=== PATIENT | female | born 1970 | race African-American/Black ===

== ENCOUNTER 2016-09-14 20:23 | Emergency (ER) | payer BC ==
[2016-09-14 19:23] LABS: BASOPHILS 0.2 %; BASOPHILS ABSOLUTE 0.01 10/3/uL (0.0-0.16); EOSINOPHILS 2.3 %; EOSINOPHILS ABSOLUTE 0.14 10/3/uL (0.0-0.53); ER CBC TAT 0 Hrs 05 Mins; HEMATOCRIT 38.3 % (36.0-48.0); HEMOGLOBIN 12.9 g/dL (12.0-16.0); LYMPHOCYTES 60.7 %; LYMPHOCYTES ABSOLUTE 3.77 10/3/uL (0.67-4.30); MANUAL DIFF NO %; MEAN CORPUS HGB CONC 33.7 g/dL (32.0-36.0); MEAN CORPUSCULAR HEMOGLOB 28.4 pg (26.0-34.0); MEAN CORPUSCULAR VOLUME 84.4 fL (80-100); MEAN PLATELET VOLUME 9.5 fL (9.2-13.0); MONOCYTES 6.9 %; MONOCYTES ABSOLUTE 0.43 10/3/uL (0.21-1.20); NEUTROPHILS 29.9 %; NEUTROPHILS ABSOLUTE 1.86 10/3/uL (2.02-8.40); PLATELET COUNT 283 10/3/uL (150-400); RBC DISTRIBUTION WIDTH 13.8 % (12.0-16.0); RED CELL COUNT 4.54 10/6/uL (4.0-5.6); WHITE BLOOD CELLS 6.2 10/3/uL (4.5-10.5)
[2016-09-14 19:26] LABS: ASCORBIC ACID (UR NOT ORDER) NEG (NEG); BILIRUBIN, URINE NEGATIVE (NEG); ER URINALYSIS TAT 0 Hrs 13 Mins; KETONE, URINE NEGATIVE (NEG); LEUKOCYTE ESTERASE(NOT OR NEG (NEG); NITRITE (URINE) NEG (NEG); WBC (NOT ORDERED) (RFLEX) 1 (0-5)
[2016-09-14 19:40] LABS: A/G RATIO 0.9 (0.7-1.9); ALBUMIN 3.5 G/DL (3.5-5.0); BUN (BLOOD UREA NITROGEN) 15 MG/DL (6-23); CALCIUM, SERUM 8.3 MG/DL (8.5-10.4); CHLORIDE, SERUM 108 MMOL/L (96-112); CO2 (CARBON DIOXIDE) 27 MMOL/L (24-34); CREATININE 0.87 MG/DL (0.55-1.02); GFR AFRICAN AMERICAN 94 ML/MIN (>=60); GFR NON AFRICAN AMERICAN 81 ML/MIN (>=60); GLOBULIN 3.8 G/DL (2.5-4.1); GLUCOSE, SERUM 88 MG/DL (60-99); POTASSIUM, SERUM 3.9 MMOL/L (3.5-5.3); SGOT(AST) 14 U/L (5-40); SGPT(ALT) 29 U/L (5-65); SODIUM, SERUM 143 MMOL/L (135-148); TOTAL BILIRUBIN 0.2 MG/DL (0-1.2); TOTAL PROTEIN 7.3 G/DL (6.0-8.5)
[2016-09-14 19:41] LABS: ALKALINE PHOSPHATASE 72 U/L (45-117)
[~2016-09-14 20:23] MED LIST: CHOLESTEROL RX PO; D100 PO; KEPPRA1000 MG PO; LYRICA75 PO; NEXIUM20 M1 PO; PRAVAC PO; PROVHFA INH; SUCR PO; TOPAMAX25 PO; VIMPAT50 MG PO; ZANTAC150 MG PO; ZANTAC300 MG PO
[2017-02-01] MEDS ORDERED: BENTYL20 PO (10:41)
[2017-02-01] MEDS ORDERED: SUCR PO (10:42)
[2017-02-01] MEDS ORDERED: PEP20 PO (10:42)
[2017-02-01] MEDS ORDERED: IMDUR30 PO (10:42)
[2017-02-01] MEDS ORDERED: PLAVIX PO (10:43)
[2017-02-01] MEDS ORDERED: KEPPRA750 MG PO (10:43)
[2017-02-01] MEDS ORDERED: TOPAMAX25 PO (10:43)
[2017-02-01] MEDS ORDERED: HALF81 PO (10:44)
[2017-02-01] MEDS ORDERED: NORCO1 TA1 PO (10:44)
[2017-02-01] MEDS ORDERED: PROTONIX PO (10:44)
[2017-02-01] MEDS ORDERED: PERCOCET 10/3251 TAB PO (10:45)
[2017-02-01] MEDS ORDERED: LIPITOR40 PO (10:46)
[2017-02-01] MEDS ORDERED: LOP25 PO (10:46)
[2017-02-01] MEDS ORDERED: NITROSTAT0.4 MG SL (10:46)
[2017-02-01] MEDS ORDERED: REFRESH OPH SO0.3 ML OPH (10:47)
[2017-02-01] MEDS ORDERED: PROVHFA INH (10:47)
[2017-02-01] MEDS ORDERED: ACET500CAP PO (10:47)
[2017-02-01] MEDS ORDERED: VITAMIN D1000 UNI1 PO (10:53)
== END 2016-09-14 21:33 | disposition home or self-care (01) ==
LOC: ER 20:23
PROVIDERS: Emergency Medicine
DX: N76.0 Acute vaginitis (principal); I10 Essential (primary) hypertension; I25.2 Old myocardial infarction; Z98.61 Coronary angioplasty status; Z87.891 Personal history of nicotine dependence; Z88.2 Allergy status to sulfonamides; Z88.6 Allergy status to analgesic agent; Z91.048 Other nonmedicinal substance allergy status; Z88.1 Allergy status to other antibiotic agents; Z79.899 Other long term (current) drug therapy
CPT/HCPCS: 80053; 81001; 83690; 84703; 85025; 96372; 99283; A9270-GY; J0696

== ENCOUNTER 2016-09-28 05:30 | Emergency (ER) | payer BC ==
[2016-09-28 01:10] LABS: BASOPHILS 0.4 %; BASOPHILS ABSOLUTE 0.02 10/3/uL (0.0-0.16); EOSINOPHILS 3.1 %; EOSINOPHILS ABSOLUTE 0.17 10/3/uL (0.0-0.53); HEMATOCRIT 38.6 % (36.0-48.0); HEMOGLOBIN 13.3 g/dL (12.0-16.0); LYMPHOCYTES 54.8 %; LYMPHOCYTES ABSOLUTE 2.96 10/3/uL (0.67-4.30); MANUAL DIFF NO %; MEAN CORPUS HGB CONC 34.5 g/dL (32.0-36.0); MEAN CORPUSCULAR HEMOGLOB 28.6 pg (26.0-34.0); MEAN PLATELET VOLUME 9.6 fL (9.2-13.0); MONOCYTES 6.3 %; MONOCYTES ABSOLUTE 0.34 10/3/uL (0.21-1.20); NEUTROPHILS 35.4 %; NEUTROPHILS ABSOLUTE 1.91 10/3/uL (2.02-8.40); PLATELET COUNT 245 10/3/uL (150-400); RBC DISTRIBUTION WIDTH 13.6 % (12.0-16.0); RED CELL COUNT 4.65 10/6/uL (4.0-5.6); WHITE BLOOD CELLS 5.4 10/3/uL (4.5-10.5)
[2016-09-28 01:20] LABS: PROTIME (NOT ORD) 13.4 SEC (12.0-14.5)
[2016-09-28 01:28] LABS: BUN (BLOOD UREA NITROGEN) 14 MG/DL (6-23); CALCIUM, SERUM 8.3 MG/DL (8.5-10.4); CHEST PAIN PROFILE TAT 0 Hrs 22 Mins; CHLORIDE, SERUM 108 MMOL/L (96-112); CO2 (CARBON DIOXIDE) 26 MMOL/L (24-34); CREATININE 0.93 MG/DL (0.55-1.02); GFR AFRICAN AMERICAN 87 ML/MIN (>=60); GFR NON AFRICAN AMERICAN 75 ML/MIN (>=60); POTASSIUM, SERUM 3.9 MMOL/L (3.5-5.3); SODIUM, SERUM 143 MMOL/L (135-148); TROPONIN I <0.02 NG/ML (<0.05)
[2016-09-28 01:29] LABS: GLUCOSE, SERUM 107 MG/DL (60-99)
[2016-09-28 05:56] LABS: INFLUENZA A SCREEN NEGATIVE (NEGATIVE); INFLUENZA B SCREEN NEGATIVE (NEGATIVE)
[2016-09-28 06:28] LABS: ASCORBIC ACID (UR NOT ORDER) NEG (NEG); BILIRUBIN, URINE NEGATIVE (NEG); KETONE, URINE NEGATIVE (NEG); LEUKOCYTE ESTERASE(NOT OR NEG (NEG); NITRITE (URINE) NEG (NEG); WBC (NOT ORDERED) (RFLEX) 2 (0-5)
[2017-02-01] MEDS ORDERED: BENTYL20 PO (10:41)
[2017-02-01] MEDS ORDERED: PEP20 PO (10:42)
[2017-02-01] MEDS ORDERED: SUCR PO (10:42)
[2017-02-01] MEDS ORDERED: IMDUR30 PO (10:42)
[2017-02-01] MEDS ORDERED: KEPPRA750 MG PO (10:43)
[2017-02-01] MEDS ORDERED: PLAVIX PO (10:43)
[2017-02-01] MEDS ORDERED: TOPAMAX25 PO (10:43)
[2017-02-01] MEDS ORDERED: NORCO1 TA1 PO (10:44)
[2017-02-01] MEDS ORDERED: PROTONIX PO (10:44)
[2017-02-01] MEDS ORDERED: HALF81 PO (10:44)
[2017-02-01] MEDS ORDERED: PERCOCET 10/3251 TAB PO (10:45)
[2017-02-01] MEDS ORDERED: LOP25 PO (10:46)
[2017-02-01] MEDS ORDERED: NITROSTAT0.4 MG SL (10:46)
[2017-02-01] MEDS ORDERED: LIPITOR40 PO (10:46)
[2017-02-01] MEDS ORDERED: ACET500CAP PO (10:47)
[2017-02-01] MEDS ORDERED: PROVHFA INH (10:47)
[2017-02-01] MEDS ORDERED: REFRESH OPH SO0.3 ML OPH (10:47)
[2017-02-01] MEDS ORDERED: VITAMIN D1000 UNI1 PO (10:53)
== END 2016-09-28 07:15 | disposition home or self-care (01) ==
LOC: ER 05:30
PROVIDERS: Nurse Practitioner; Specialist
DX: R07.9 Chest pain, unspecified (principal); R11.2 Nausea with vomiting, unspecified; J45.909 Unspecified asthma, uncomplicated; I25.2 Old myocardial infarction; I10 Essential (primary) hypertension; K21.9 Gastro-esophageal reflux disease without esophagitis; E78.5 Hyperlipidemia, unspecified; Z95.5 Presence of coronary angioplasty implant and graft; Z87.891 Personal history of nicotine dependence; Z90.710 Acquired absence of both cervix and uterus; Z90.89 Acquired absence of other organs; Z88.1 Allergy status to other antibiotic agents; Z88.2 Allergy status to sulfonamides; Z88.8 Allergy status to other drugs, medicaments and biological substances; Z91.09 Other allergy status, other than to drugs and biological substances; Z79.899 Other long term (current) drug therapy
CPT/HCPCS: 71010; 80048; 81001; 83690; 83735; 84443; 84484; 85025; 85610; 85730; 87804; 93005; 96374; 99285; A9270-GY

== ENCOUNTER 2016-11-24 15:17 | Observation (INO) | payer BC ==
--- NOTE | ~2016-11-24 | HP ---
History And Physical [place] [id number] [facility] [place]. [address] NAME: BRITTANY AVALOS : 74 STATUS : ADM Tara PAT#: [id number] AGE: 46 ADM/REG DATE : 11/24/16 MR#: [id number] REPORT SERV DATE: 11/25/16 DICTATED BY: ANA LEIJA DATE: 11/25/16 REPORT STATUS : Draft TRANSCRIBED BY: SIDRA DATE: 11/25/16 DATE OF ADMISSION: 11/24/2016 PRIMARY ENGINE INSPECTOR: Dr. Guy Sears. CHIEF COMPLAINT: Shortness of breath and chest pain as well as seizure. HISTORY OF PRESENT ILLNESS: This is a very pleasant 46-year-old female with history of coronary artery disease status post RI and stent to the RCA and left circumflex in February 2016 along with a balloon angioplasty to the RCA on 11/06/2016 of this year. She describes since that 11/06/2016 hospitalization at a hospital in [place], where she received angioplasty, she still continues to experience chest pain to the midsternum typically with activity. The episodes last from 5 to 10 minutes, they are intermittent. She also describes dyspnea on exertion. She is experiencing both shortness of breath and chest pain yesterday while she was getting ready to go to [employer]idism. Then, when she was leaving the yazidism, she mentioned to the family members that she should come to the hospital, and then she fainted. The patient has a history of seizure disorder, and at that time, had a grand mal seizure witnessed by her family members, and she was brought here to our emergency department by her sister around 1230 hours. The patient received her home medications of Keppra, Lyrica, and Topamax, which she had not taken that morning. Typically, she is very compliant with these medications, and has not had a seizure for many years. The patient also received aspirin and nitroglycerin as well as IV morphine and Zofran for her chest pain, and she is currently chest pain free. The patient states recent evaluation with ultrasound of her bilateral lower extremities by her primary care physician, which was negative. The patient denies swelling or calf tenderness. Denies fever, cough, or chills. Denies PND or orthopnea. She does mention more fatigue over the last week. Review of records from Dr. Sears's office visit on 11/18/2016 indicates that the patient was also complaining of shortness of breath at that visit, and she was changed from Brilinta to Plavix for anti-platelet regimen. She has been compliant with her Plavix therapy. PAST MEDICAL HISTORY: 1. Coronary artery disease status post RI in February 2016 with stent to the proximal left circumflex as well as RCA. Then hospitalized at [facility] in [place] with a mqw-IL-miuxdolpr RI. Troponin leak of 0.1, and PCI to the ostial RCA on 11/06/2016. 2. Echocardiogram on 11/06/2016 indicates EF of 60%. 3. Obesity. 4. Hyperlipidemia. 5. Seizure disorder, grand mal. 6. Remote history of asthma. 7. Prior tobacco use, quit in 2015. 8. Diverticulitis. 9. GERD. History And Physical [address] [place]. [address] NAME: BRITTANY AVALOS : 74 STATUS : ADM Tara PAT#: [id number] AGE: 46 ADM/REG DATE : 11/24/16 MR#: [id number] REPORT SERV DATE: 11/25/16 DICTATED BY: ANA LEIJA DATE: 11/25/16 REPORT STATUS : Draft TRANSCRIBED BY: SIDRA DATE: 11/25/16 PAST SURGICAL HISTORY: 1. Hysterectomy in 2011. 2. Tubal ligation. 3. Left inguinal hernia repair at age 23. 4. Adenoidectomy and tonsillectomy at age 24. HOME MEDICATIONS: Aspirin 81 daily, Plavix 75 daily, Keppra 500 b.i.d., Lopressor 25 b.i.d., Lyrica 100 mg b.i.d., and Topamax 25 b.i.d. ALLERGIES: ALLERGY TO SULFA CAUSES A RASH. CECLOR WITH UNKNOWN REACTION. CIPRO WITH RASH. ADHESIVE TAPE AND BANDAGES, RASH. TORADOL WITH RASH. REGLAN, "GOES CRAZY." EKG PADS CAUSE SWELLING, RASH, AND ITCHING WITH EXTENDED USE. SOCIAL HISTORY: The patient is single, her son currently lives with her. Quit tobacco in 2016 after many years. Denies alcohol or illicit drug use. FAMILY HISTORY: Father with history of a DVT at age 58. Also had open heart surgery at age 65. He is still living. No premature cardiovascular related among her first-degree relatives. REVIEW OF SYSTEMS: The patient also mentions that she had a sleep study as an outpatient approximately three months ago which suggested that she has some sleep apnea when lying on her back. Followup sleep study was recommended. All other review of systems was negative except as indicated above. PHYSICAL EXAMINATION: VITAL SIGNS: Blood pressure 104/72, heart rate 63, temperature 98.4, and pulse oximetry 99% on room air. BMI of 38.2. GENERAL: Well developed, well nourished, in no acute distress HEENT: Anicteric. Normal EOM. Head normocephalic. PERRLA, no xanthelasma. NECK: Supple. No JVD. Carotids normal without bruits. LUNGS: Clear to auscultation bilaterally anterior and posterior. Respirations even and unlabored. CARDIOVASCULAR: S1, S2. Regular rate and rhythm. No murmurs, rubs, or gallops appreciated. PMI nondisplaced. There is some tenderness to palpation over the mid sternum. ABDOMEN: Normal bowel sounds. Soft and nontender to palpation. No masses or organomegaly. EXTREMITIES: No peripheral edema. DP/PT and radial pulses palpable bilaterally. No clubbing or cyanosis. SKIN: Warm and dry. Normal turgor. No pallor or cyanosis. MUSCULOSKELETAL: Moving all extremities x4. Normal muscle strength. NEURO/PSYCH: Alert and oriented with appropriate affect. LABORATORY DATA: White blood count 4.2, hemoglobin 13.2, and hematocrit 38.5. Sodium 142, potassium 4.0, BUN 13, and creatinine 0.8. Troponin less than 0.02 x2. Chest x-ray showed no acute cardiopulmonary abnormalities. EKGs interpreted by myself indicate normal sinus History And Physical [address] [address] NAME: BRITTANY AVALOS : 74 STATUS : ADM Tara PAT#: [id number] AGE: 46 ADM/REG DATE : 11/24/16 MR#: [id number] REPORT SERV DATE: 11/25/16 DICTATED BY: ANA LEIJA DATE: 11/25/16 REPORT STATUS : Draft TRANSCRIBED BY: SIDRA DATE: 11/25/16 rhythm on three separate EKGs with no ischemic changes. ASSESSMENT/PLAN: 1. Midsternal chest pain and dyspnea on exertion in the patient with history of coronary artery disease and recent angioplasty to the RCA. EKG and troponins do not indicate any acute coronary ischemia at this time. The patient is currently on aspirin, beta- tamica, and statin therapy. [facility] Agu[facility] this morning, and we will proceed with a nuclear stress test this morning to identify any areas of ischemia in this patient who has had stents in both the left circumflex and RCA. If no indication of ischemia on stress testing, we will plan to discharge her home with the addition of Ranexa 500 mg b.i.d. to her medical therapy. I also provided the patient with a prescription for nitroglycerin p.r.n. chest pain. I have instructed her on the use of this and come to the emergency department for any chest pain, unrelieved after 3 doses 5 minutes apart. I have also recommend that she pursue outpatient sleep study as mentioned before. We will arrange follow up with her jamb cutter within the next month after testing done here. If any indication of ischemia on stress testing, we will need to consider repeat cardiac catheterization. 2. Coronary artery disease with history of stents to the RCA and left circumflex in 2016, and then reported balloon angioplasty to the RCA on 11/06/2016. I have reviewed the records from [facility]. The patient is currently compliant with her aspirin and Plavix. We will continue these medicines as well as her beta-tamica and statin therapy. 3. Seizure disorder with grand mal seizure occurring yesterday after one skipped dose. We will continue her current seizure medications, and the patient plans to follow up with her neurologist in the outpatient setting in early November. I have further emphasized this. 4. Mixed hyperlipidemia. On statin therapy. We will continue. DBT/MODL Ana Leija NP / [id number] CC: Hilaria Cisneros, MSN, MANAGER UTILIZATION-[employer] Johnny Moore M.D.
[2016-11-24 13:23] LABS: BASOPHILS 0.2 %; BASOPHILS ABSOLUTE 0.01 10/3/uL (0.0-0.16); EOSINOPHILS 2.1 %; EOSINOPHILS ABSOLUTE 0.09 10/3/uL (0.0-0.53); ER CBC TAT 0 Hrs 05 Mins; HEMATOCRIT 38.5 % (36.0-48.0); HEMOGLOBIN 13.2 g/dL (12.0-16.0); IMMATURE GRANULOCYTES 0.2 %; IMMATURE GRANULOCYTES ABSOLUTE 0.01 10/3/uL (0.0-0.11); LYMPHOCYTES 55.7 %; LYMPHOCYTES ABSOLUTE 2.36 10/3/uL (0.67-4.30); MEAN CORPUS HGB CONC 34.3 g/dL (32.0-36.0); MEAN CORPUSCULAR HEMOGLOB 28.6 pg (26.0-34.0); MEAN CORPUSCULAR VOLUME 83.3 fL (80-100); MEAN PLATELET VOLUME 9.6 fL (9.2-13.0); MONOCYTES 6.6 %; MONOCYTES ABSOLUTE 0.28 10/3/uL (0.21-1.20); NEUTROPHILS 35.2 %; NEUTROPHILS ABSOLUTE 1.49 10/3/uL (2.02-8.40); PLATELET COUNT 241 10/3/uL (150-400); RBC DISTRIBUTION WIDTH 13.2 % (12.0-16.0); RED CELL COUNT 4.62 10/6/uL (4.0-5.6); WHITE BLOOD CELLS 4.2 10/3/uL (4.5-10.5)
[2016-11-24 13:27] LABS: MANUAL DIFF NO %
[2016-11-24 13:37] LABS: BUN (BLOOD UREA NITROGEN) 13 MG/DL (6-23); CALCIUM, SERUM 8.9 MG/DL (8.5-10.4); CHEST PAIN PROFILE TAT 0 Hrs 19 Mins; CHLORIDE, SERUM 109 MMOL/L (96-112); CO2 (CARBON DIOXIDE) 29 MMOL/L (24-34); CREATININE 0.84 MG/DL (0.55-1.02); GFR AFRICAN AMERICAN 98 ML/MIN (>=60); GFR NON AFRICAN AMERICAN 85 ML/MIN (>=60); GLUCOSE, SERUM 93 MG/DL (60-99); SODIUM, SERUM 142 MMOL/L (135-148); TROPONIN I <0.02 NG/ML (<0.05)
[2016-11-24 13:56] LABS: INTERNATIONAL NORMAL RATI 1.1 UNITS (-); PROTIME (NOT ORD) 13.7 SEC (12.0-14.5)
[2016-11-24] MEDS ORDERED: PLAVIX PO (15:20)
[2016-11-24] MEDS ORDERED: KEPPRA500 PO (15:20)
[2016-11-24] MEDS ORDERED: TOPAMAX25 PO (15:20)
[2016-11-24] MEDS ORDERED: LOP25 PO (15:21)
[2016-11-24] MEDS ORDERED: HALF81 PO (15:21)
[2016-11-24] MEDS ORDERED: LYRICA100 MG PO (15:21)
[2016-11-26] MEDS ORDERED: RAN500 PO (14:57)
[2016-11-26] MEDS ORDERED: NITROQUICK0.3 MG SL (15:09)
[2017-02-01] MEDS ORDERED: BENTYL20 PO (10:41)
[2017-02-01] MEDS ORDERED: IMDUR30 PO (10:42)
[2017-02-01] MEDS ORDERED: PEP20 PO (10:42)
[2017-02-01] MEDS ORDERED: SUCR PO (10:42)
[2017-02-01] MEDS ORDERED: KEPPRA750 MG PO (10:43)
[2017-02-01] MEDS ORDERED: TOPAMAX25 PO (10:43)
[2017-02-01] MEDS ORDERED: PLAVIX PO (10:43)
[2017-02-01] MEDS ORDERED: PROTONIX PO (10:44)
[2017-02-01] MEDS ORDERED: HALF81 PO (10:44)
[2017-02-01] MEDS ORDERED: NORCO1 TA1 PO (10:44)
[2017-02-01] MEDS ORDERED: PERCOCET 10/3251 TAB PO (10:45)
[2017-02-01] MEDS ORDERED: LIPITOR40 PO (10:46)
[2017-02-01] MEDS ORDERED: NITROSTAT0.4 MG SL (10:46)
[2017-02-01] MEDS ORDERED: LOP25 PO (10:46)
[2017-02-01] MEDS ORDERED: PROVHFA INH (10:47)
[2017-02-01] MEDS ORDERED: REFRESH OPH SO0.3 ML OPH (10:47)
[2017-02-01] MEDS ORDERED: ACET500CAP PO (10:47)
[2017-02-01] MEDS ORDERED: VITAMIN D1000 UNI1 PO (10:53)
== END 2016-11-26 15:29 | disposition home or self-care (01) ==
LOC: ER 15:17 → CDU1 15:39 → CDU2 15:51
PROVIDERS: Hospitalist
DX: R07.89 Other chest pain (principal); R06.00 Dyspnea, unspecified; I25.10 Atherosclerotic heart disease of native coronary artery without angina pectoris; G40.409 Other generalized epilepsy and epileptic syndromes, not intractable, without status epilepticus; E78.2 Mixed hyperlipidemia; G43.909 Migraine, unspecified, not intractable, without status migrainosus; I25.2 Old myocardial infarction; K21.9 Gastro-esophageal reflux disease without esophagitis; K57.92 Diverticulitis of intestine, part unspecified, without perforation or abscess without bleeding; F17.210 Nicotine dependence, cigarettes, uncomplicated; E66.9 Obesity, unspecified; Z68.38 Body mass index [BMI] 38.0-38.9, adult; Z88.0 Allergy status to penicillin; Z88.1 Allergy status to other antibiotic agents; Z90.49 Acquired absence of other specified parts of digestive tract; Z90.710 Acquired absence of both cervix and uterus; Z98.890 Other specified postprocedural states; Z79.82 Long term (current) use of aspirin; Z79.899 Other long term (current) drug therapy
CPT/HCPCS: 71020; 78452; 80048; 83735; 84484; 85025; 85610; 85730; 93005; 93017; 96374; 96375; 96376; 99285; A9270-GY; A9502; G0378; J2405

== ENCOUNTER 2016-12-04 08:51 | Observation (INO) | payer BC ==
--- NOTE | ~2016-12-04 | PRECARD ---
H&P [facility] [address] [place]. [address] NAME: BRITTANY AVALOS : 74 STATUS : ADM IN [facility]#: [id number] AGE: 46 ADM/REG DATE : 12/04/16 MR#: [id number] REPORT SERV DATE: 12/04/16 DICTATED BY: KETTY KRUSE DATE: 12/04/16 REPORT STATUS : Draft TRANSCRIBED BY: SIDRA DATE: 12/04/16 DATE OF ADMISSION: 12/04/2016 HISTORY OF PRESENT ILLNESS: Ms. Brittany Avalos is a 46-year-old woman who was transferred from [facility] per Dr. Sears for cardiac catheterization today. Ms. Avalos has known coronary artery disease. She had a stent placed to the right coronary artery and circumflex artery in 11/2015 at [facility]. She presents with recurrent chest discomfort on 11/06/2016 to a hospital in [place]. Catheterization demonstrated significant ostial in-stent restenoses of the right coronary stent, she underwent a balloon angioplasty. She presented again on to [facility] where she was admitted for chest pain. Her perfusion study demonstrated no ischemia, was low risk. She now has chest pain for three to four days. She has intermittent chest discomfort that occurs both with exertion and at rest in the last three to four minutes. It occurs perhaps four to five times per day, lasting a few minutes at a time. It goes away by itself. She also has used nitroglycerin for relief. PAST MEDICAL HISTORY: Grand mal seizures, hysterectomy, and tubal ligation. SOCIAL HISTORY: Five children. Single. No longer smoking. MEDICATIONS AT HOME: Aspirin, clopidogrel, Keppra, metoprolol, nitroglycerin, Lyrica, Ranexa, Topamax, and Lipitor. REVIEW OF SYSTEMS: A complete review of systems was obtained, pertinent negative and unremarkable except as noted above. All systems addressed. PHYSICAL EXAMINATION: VITAL SIGNS: Blood pressure 146/93, heart rate is 60 to 70. GENERAL: Comfortable, in no acute distress. HEENT: No xanthelasma; lips without cyanosis LUNGS: Clear to auscultation, no wheezes, rales or rhonchi; good breath sounds. COR: No JVD or hepatojugular reflux, no murmurs, rubs or gallops, impulse mid clavicular line without carotid or abdominal bruits; normal S1 and S2. ABDOMEN: Bowel sounds positive, normal activity, without tenderness, masses or hepatosplenomegaly. EXTREMITIES: No edema, cyanosis. SKIN: Normal turgor. Ms: Normal muscle strength, without kyphosis/scoliosis. NEURO/PSYCH: Alert and oriented times 4, no apparent anxiety or depression. LABORATORY DATA: Troponin is 0.015. Creatinine 0.8. Hematocrit 35.4. EKG: Sinus rhythm with a leftward axis and no ischemia. H&P [address] [address] NAME: BRITTANY AVALOS : 74 STATUS : ADM IN [facility]#: [id number] AGE: 46 ADM/REG DATE : 12/04/16 MR#: [id number] REPORT SERV DATE: 12/04/16 DICTATED BY: KETTY KRUSE DATE: 12/04/16 REPORT STATUS : Draft TRANSCRIBED BY: SIDRA DATE: 12/04/16 ASSESSMENT: Ms. Avalos is a very nice 46-year-old woman with known coronary artery disease. She had stents placed in the circumflex and right coronary artery at [facility] in 11/2015. She had catheterization in 11/06/2016 when she underwent balloon angioplasty to a circumflex stent. Perfusion study about 10 days ago demonstrated no ischemia. She presents with recurrent chest discomfort. Dr. Sears requested a transfer to [facility] for catheterization. I discussed the risks, benefits, and alternatives of cardiac catheterization and coronary angioplasty with Ms. Avalos. She understands and agrees to proceed. LIANA/SIDRA Ketty Kruse M.D. / [id number] CC: Guy Sears M.D. UNKNOWN
[~2016-12-04 08:51] MED LIST changes: +HALF81 PO; +KEPPRA500 PO; +LOP25 PO; +LYRICA100 MG PO; +NITROQUICK0.3 MG SL; +PLAVIX PO; +RAN500 PO
[2016-12-04] MEDS ORDERED: LIPITOR40 PO (15:12)
[2016-12-04] MEDS ORDERED: PROTONIX PO (15:13)
[2017-02-01] MEDS ORDERED: BENTYL20 PO (10:41)
[2017-02-01] MEDS ORDERED: IMDUR30 PO (10:42)
[2017-02-01] MEDS ORDERED: PEP20 PO (10:42)
[2017-02-01] MEDS ORDERED: SUCR PO (10:42)
[2017-02-01] MEDS ORDERED: KEPPRA750 MG PO (10:43)
[2017-02-01] MEDS ORDERED: PLAVIX PO (10:43)
[2017-02-01] MEDS ORDERED: TOPAMAX25 PO (10:43)
[2017-02-01] MEDS ORDERED: PROTONIX PO (10:44)
[2017-02-01] MEDS ORDERED: HALF81 PO (10:44)
[2017-02-01] MEDS ORDERED: NORCO1 TA1 PO (10:44)
[2017-02-01] MEDS ORDERED: PERCOCET 10/3251 TAB PO (10:45)
[2017-02-01] MEDS ORDERED: LIPITOR40 PO (10:46)
[2017-02-01] MEDS ORDERED: LOP25 PO (10:46)
[2017-02-01] MEDS ORDERED: NITROSTAT0.4 MG SL (10:46)
[2017-02-01] MEDS ORDERED: REFRESH OPH SO0.3 ML OPH (10:47)
[2017-02-01] MEDS ORDERED: ACET500CAP PO (10:47)
[2017-02-01] MEDS ORDERED: PROVHFA INH (10:47)
[2017-02-01] MEDS ORDERED: VITAMIN D1000 UNI1 PO (10:53)
== END 2016-12-04 19:26 | disposition home or self-care (01) ==
LOC: SSU1 08:51
PROC: 4A023N7 Measurement of Cardiac Sampling and Pressure, Left Heart, Percutaneous Approach (ICD-10-PCS; principal; 2016-12-04)
PROC: B2111ZZ Fluoroscopy of Multiple Coronary Arteries using Low Osmolar Contrast (ICD-10-PCS; 2016-12-04)
DX: I25.110 Atherosclerotic heart disease of native coronary artery with unstable angina pectoris (principal); I10 Essential (primary) hypertension; I25.2 Old myocardial infarction; E78.00 Pure hypercholesterolemia, unspecified; E78.2 Mixed hyperlipidemia; G40.409 Other generalized epilepsy and epileptic syndromes, not intractable, without status epilepticus; Z82.49 Family history of ischemic heart disease and other diseases of the circulatory system; Z88.2 Allergy status to sulfonamides; Z88.1 Allergy status to other antibiotic agents; Z88.8 Allergy status to other drugs, medicaments and biological substances; Z91.09 Other allergy status, other than to drugs and biological substances; Z79.82 Long term (current) use of aspirin; Z79.899 Other long term (current) drug therapy; Z90.710 Acquired absence of both cervix and uterus; Z98.51 Tubal ligation status; Z87.891 Personal history of nicotine dependence
CPT/HCPCS: 93005; 93458; 99152; 99153; A9270-GY; C1760; C1769; G0378; J2250; J3010; Q9967